=== PATIENT | male | born 1940 | race Caucasian/White ===

== ENCOUNTER 2024-05-29 19:17 | Emergency (ER) | payer MEDICARE, OTHER ==
[~2024-05-29] VITALS: Ht 160 cm; Wt 62.1 kg
[2024-05-29 20:15] VITALS: BP 153/79; TEMP 97.7; O2SAT 95
[2024-05-29] MEDS ORDERED: METR500T PO (20:30)
[2024-05-29] MEDS ORDERED: LACT10SO68 PO (20:30)
== END 2024-05-29 20:59 | disposition home or self-care (01) ==
LOC: ER 19:42
DX: K59.00 Constipation, unspecified (principal); R11.0 Nausea